=== PATIENT | male | born 1990 | race Caucasian/White ===

== ENCOUNTER 2018-04-21 21:47 | Emergency (ER) | payer SELFPAY ==
[2018-04-21 22:05] VITALS: BP 129/81; PULSE 74; RESP 20; TEMP 98.9; O2SAT 100
--- NOTE | 2018-04-21 22:48 | C.PDOC ---
History Of Present Illness 28-year-old male presents to the ED for evaluation of back pain which has been intermittent for one year. Patient states the pain is throughout his entire back. It is worse with heavy lifting and has been increasingly worse in the morning over the past three days. Patient has not taken any pain medication for his symptoms. He states his pain is currently improved. He denies fever, chills, abdominal pain, urinary/bowel incontinence, extremity numbness/weakness. Time Seen by Provider: 04/21/18 22:16 Chief Complaint (Nursing): Back Pain History Per: Patient History/Exam Limitations: no limitations Onset/Duration Of Symptoms: Intermittent Episodes (one year ) Current Symptoms Are (Timing): Worse Quality Of Discomfort: "Pain" Previous Symptoms: Back Pain Associated Symptoms: denies: Incontinence, New Weakness, New Numbness Exacerbating Factor(s): Movement Additional History Per: Patient Past Medical History Reviewed: Historical Data, Nursing Documentation, Vital Signs Vital Signs: Last Vital Signs Temp 98.9 F 04/21/18 21:59 Pulse 74 04/21/18 21:59 Resp 20 04/21/18 21:59 BP 129/81 04/21/18 21:59 Pulse Ox 100 04/21/18 21:59 - Medical History PMH: No Chronic Diseases Surgical History: No Surg Hx Family History: States: Unknown Family Hx - Social History Hx Alcohol Use: No Hx Substance Use: No Review Of Systems Constitutional: Negative for: Fever, Chills Gastrointestinal: Negative for: Abdominal Pain Genitourinary: Negative for: Incontinence Musculoskeletal: Positive for: Back Pain Neurological: Negative for: Weakness, Numbness Physical Exam - Physical Exam Appears: Non-toxic, No Acute Distress Skin: Normal Color, Warm, Dry Head: Atraumatic, Normacephalic Eye(s): bilateral: Normal Inspection Oral Mucosa: Moist Neck: Normal ROM, Supple Chest: Symmetrical, No Deformity, No Tenderness Back: No Vertebral Tenderness, No Paraspinal Tenderness Extremity: Normal ROM, Capillary Refill (less than 2 seconds ) Neurological/Psych: Oriented x3, Normal Speech, Normal Cognition Gait: Steady ED Course And Treatment O2 Sat by Pulse Oximetry: 100 (on RA) Pulse Ox Interpretation: Normal Progress Note: On reassessment, patient is resting comfortably, showing no signs of distress, and reports and states his pain has currently improved. Patient is ambulatory in the ED with a steady gait and is stable for discharge. Patient is advised to follow up with his PMD within 1 to 2 days for further evaluation and/or return to the ED if symptoms persist or worsen. Reassessment Condition: Improved Disposition Counseled Patient/Family Regarding: Diagnosis, Need For Followup, Rx Given - Disposition Referrals: [facility] [Outside] Disposition: HOME/ ROUTINE Disposition Time: 22:45 Condition: STABLE Additional Instructions: Take motrin for pain Avoid heavy lifting Warm packs to area Return to ER if worse Prescriptions: Cyclobenzaprine [Cyclobenzaprine HCl] 10 mg PO HS #10 tab Ibuprofen [Motrin] 600 mg PO Q6H #24 tab Instructions: Lumbar Muscle Strain (DC) Forms: [employer] (Indonesian) - Clinical Impression Clinical Impression: Low back strain - 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 - Scribe Statement The provider has reviewed the documentation as recorded by the Scribe (Bethany Sanchez) All medical record entries made by the Scribe were at my direction and personally dictated by me. I have reviewed the chart and agree that the record accurately reflects my personal performance of the history, physical exam, medical decision making, and the department course for this patient. I have also personally directed, reviewed, and agree with the discharge instructions and disposition.
== END 2018-04-21 23:06 | disposition home or self-care (01) ==
LOC: C.ER 21:47
DX: S39.012A Strain of muscle, fascia and tendon of lower back, initial encounter (principal); X58.XXXA Exposure to other specified factors, initial encounter